=== PATIENT | female | born 2000 | race Caucasian/White ===

== ENCOUNTER 2022-08-13 13:32 | Emergency (ER) | payer BC ==
[~2022-08-13] VITALS: Ht 165.1 cm; Wt 52.2 kg
[2022-08-13 14:06] LABS: BASOPHILS # (AUTO) 0.1 10^3/uL (0.0-0.1); BASOPHILS % (AUTO) 1 % (0-10); EOSINOPHILS % (AUTO) 0 % (0-10); HEMATOCRIT 45 % (35-52); HEMOGLOBIN 15.2 g/dL (11.5-16.0); LYMPHOCYTES # (AUTO) 1.2 10^3/uL (1.0-4.0); LYMPHOCYTES % (AUTO) 13 % (12-44); MEAN CORPUSCULAR HEMOGLOBIN 31 pg (25-34); MEAN CORPUSCULAR HGB CONC 34 g/dL (32-36); MEAN CORPUSCULAR VOLUME 91 fL (80-99); MEAN PLATELET VOLUME 9.4 fL (9.0-12.2); MONOCYTES # (AUTO) 0.6 10^3/uL (0.0-1.0); MONOCYTES % (AUTO) 6 % (0-12); NEUTROPHILS # (AUTO) 7.5 10^3/uL (1.8-7.8); NEUTROPHILS % (AUTO) 80 % (42-75); PLATELET COUNT 373 10^3/uL (130-400); WHITE BLOOD COUNT 9.4 10^3/uL (4.3-11.0)
--- NOTE | 2022-08-13 14:13 | ED Cardiac General ---
History of Present Illness General Chief Complaint: Cardiac/General Problems Stated Complaint: ELEVATED HEART RATE Source: patient Exam Limitations: no limitations (DEAN GARAY APRN) History of Present Illness Date Seen by Provider: Aug 13, 2022 Time Seen by Provider: 13:48 Initial Comments 21-year-old female presents to the ED with complaints of elevated heart rate. States that randomly her heart rate will jump up to the 170s, stay there for a couple minutes and slowly go down. States this occurs daily. She reports dizziness, nausea, shortness of air and states she sometimes passes out, states that when she does not pass out she still sees black dots in her vision during the episodes. She reports that it occurred today around [address] States she still feels nauseous and a little dizzy. States she had the same problem 3.5 years ago, she was seen at [facility] who did a bunch of tests and did not find anything. States she has an appointment with the cardiology clinic next week. She denies any recent illness, denies fevers, denies chest pain, abdominal pain, diarrhea, constipation, dysuria, vomiting. Denies any other past medical/surgical history, only takes a multivitamin. (DEAN GARAY APRN) Allergies and Home Medications Patient Home Medication List Home Medication List Reviewed: Yes (DEAN GARAY APRN) Review of Systems Review of Systems Constitutional: see HPI (DEAN GARAY APRN) Past Fxicnwi-Eoqbge-Omokxs Hx Patient Social History Tobacco Use?: No Smoking Status: Never a Smoker Smokeless Tobacco Frequency: Never a User Use of E-Cig and/or Vaping dev: No Use of E-Cig and/or Vaping William: Never a User Substance use?: No Alcohol Use?: Yes Alcohol Frequency: Once in a while Pt feels they are or have been: No (DEAN GARAY APRN) Immunizations Up To Date COVID19 Vaccine Deputy K 9: J&J (DEAN GARAY APRN) Physical Exam Vital Signs Vital Signs - First Documented 08/13/22 08/13/22 13:46 15:24 Temp 36.2 Pulse 85 Resp 17 B/P (MAP) 119/80 (93) Pulse Ox 100 O2 Delivery Room Air (CAITLIN NICK MD) Vital Signs Capillary Refill : (DEAN GARAY APRN) Height, Weight, BMI Height: '" Weight: lbs. oz. kg; BMI Method: General Appearance: No Apparent Distress, WD/WN Neck: Normal Inspection, Supple Respiratory: Lungs Clear, Normal Breath Sounds, No Accessory Muscle Use, No Respiratory Distress Cardiovascular: Regular Rate, Rhythm, No Edema, No Gallop, No JVD, No Murmur Neurologic/Psychiatric: Alert, Oriented x3, Normal Mood/Affect Skin: Normal Color, Warm/Dry (DEAN GARAY APRN) Progress/Results/Core Measures Results/Orders Lab Results Laboratory Tests Test 08/13/22 14:00 Range/Units White Blood Count 9.4 4.3-11.0 10^3/uL Red Blood Count 4.90 3.80-5.11 10^6/uL Hemoglobin 15.2 11.5-16.0 g/dL Hematocrit 45 35-52 % Mean Corpuscular Volume 91 80-99 fL Mean Corpuscular Hemoglobin 31 25-34 pg Mean Corpuscular Hemoglobin Concent 34 32-36 g/dL Red Cell Distribution Width 11.5 10.0-14.5 % Platelet Count 373 130-400 10^3/uL Mean Platelet Volume 9.4 9.0-12.2 fL Immature Granulocyte % (Auto) 0 % Neutrophils (%) (Auto) 80 H 42-75 % Lymphocytes (%) (Auto) 13 12-44 % Monocytes (%) (Auto) 6 0-12 % Eosinophils (%) (Auto) 0 0-10 % Basophils (%) (Auto) 1 0-10 % Neutrophils # (Auto) 7.5 1.8-7.8 10^3/uL Lymphocytes # (Auto) 1.2 1.0-4.0 10^3/uL Monocytes # (Auto) 0.6 0.0-1.0 10^3/uL Eosinophils # (Auto) 0.0 0.0-0.3 10^3/uL Basophils # (Auto) 0.1 0.0-0.1 10^3/uL Immature Granulocyte # (Auto) 0.0 0.0-0.1 10^3/uL Sodium Level 138 135-145 MMOL/L Potassium Level 3.6 3.6-5.0 MMOL/L Chloride Level 104 98-107 MMOL/L Carbon Dioxide Level 26 21-32 MMOL/L Anion Gap 8 5-14 MMOL/L Blood Urea Nitrogen 7 7-18 MG/DL Creatinine 0.80 0.60-1.30 MG/DL Estimat Glomerular Filtration Rate 109 BUN/Creatinine Ratio 9 Glucose Level 75 70-105 MG/DL Calcium Level 9.2 8.5-10.1 MG/DL Corrected Calcium 8.8 8.5-10.1 MG/DL Magnesium Level 2.3 1.6-2.4 MG/DL Total Bilirubin 0.7 0.1-1.0 MG/DL Aspartate Amino Transf (AST/SGOT) 21 5-34 U/L Alanine Aminotransferase (ALT/SGPT) 25 0-55 U/L Alkaline Phosphatase 67 40-136 U/L Total Protein 7.6 6.4-8.2 GM/DL Albumin 4.5 3.2-4.5 GM/DL Thyroid Stimulating Hormone (TSH) 0.88 0.35-4.94 UIU/ML (CAITLIN NICK MD) Vital Signs/I&O 08/13/22 08/13/22 13:46 15:24 Temp 36.2 37.0 Pulse 85 79 Resp 17 18 B/P (MAP) 119/80 (93) 127/65 Pulse Ox 100 O2 Delivery Room Air Room Air (CAITLIN NICK MD) Progress Progress Note #1: Time: 14:08 Progress Note Patient seen and evaluated, resting comfortably in bed, no acute distress. Based on exam and symptoms, differential diagnosis includes but is not limited to sinus tachycardia, tachyarrhythmia. Work-up initiated including EKG, CBC, CMP, magnesium, TSH. Progress Note #2: Time: 15:11 Progress Note Labs reviewed. CBC grossly normal, CMP grossly normal, TSH normal. Labs discussed with patient. Patient provided discharge instructions and return precautions. (DEAN GARAY APRN) Initial ECG Impression Date: Aug 13, 2022 Initial ECG Impression Time: 14:06 Initial ECG Rate: 74 Initial ECG Rhythm: Normal Sinus Initial ECG Intervals: Normal Initial ECG Impression: Normal Initial ECG Comparisson: No Previous ECG Available (DEAN GARAY APRN) Departure Impression Primary Impression: Palpitations Disposition: 01 HOME, SELF-CARE Condition: Stable Departure-Patient Inst. Decision time for Depature: 15:12 (DEAN GARAY APRN) Referrals: NO,LOCAL PHYSICIAN (PCP/Family) Primary Care Physician Patient Instructions: Palpitations Add. Discharge Instructions: Please follow-up with cardiology next week as scheduled. Return for loss of consciousness, chest pain, sustained palpitations, shortness of breath, changes in vision, numbness or weakness. All discharge instructions reviewed with patient and/or family. Voiced understanding. ATTENDING PHYSICIAN NOTE: I was physically present as attending physician in the emergency department during the care of this patient, but I was not directly involved in the decision making or delivery of care for this patient. (CAITLIN NICK MD) DEAN GARAY APRN Aug 13, 2022 14:13 CAITLIN NICK MD Aug 16, 2022 07:49
[2022-08-13 14:25] LABS: ALBUMIN 4.5 GM/DL (3.2-4.5); POTASSIUM 3.6 MMOL/L (3.6-5.0)
[2022-08-13 14:26] LABS: CALCIUM 9.2 MG/DL (8.5-10.1)
[2022-08-13 14:28] LABS: TOTAL PROTEIN 7.6 GM/DL (6.4-8.2)
[2022-08-13 14:29] LABS: BILIRUBIN,TOTAL 0.7 MG/DL (0.1-1.0)
[2022-08-13 14:31] LABS: CREATININE SERUM 0.8 MG/DL (0.60-1.30)
[2022-08-13 14:34] LABS: MAGNESIUM 2.3 MG/DL (1.6-2.4)
[2022-08-13 15:24] VITALS: BP 127/65
== END 2022-08-13 15:24 | disposition home or self-care (01) ==
LOC: EDUNIT# 13:32 → ER 13:34
DX: R00.2 Palpitations (principal); Z28.311 Partially vaccinated for COVID-19
CPT/HCPCS: 36415; 80053; 83735; 84443; 85025; 93005

== ENCOUNTER → 2022-08-27 | Outpatient (CLI) | payer BC | LOC: CARD 11:29 | PROVIDERS: ATTEND Internal Medicine Cardiovascular Disease | DX: R55 Syncope and collapse (principal) | CPT/HCPCS: 93306 ==

== ENCOUNTER → 2022-09-14 | Outpatient (CLI) | payer BC ==
[2022-09-14 13:42] VITALS: BP 110/70
== END ==
LOC: CARD 13:16
PROVIDERS: ATTEND Internal Medicine Cardiovascular Disease
DX: R55 Syncope and collapse (principal)

== ENCOUNTER → 2022-11-02 | Outpatient (CLI) | payer BC ==
[2022-11-02] VITALS (30 sets, daily range): BP systolic 90–122; BP diastolic 53–100
[~2022-11-02] VITALS: Ht 165.1 cm; Wt 55.3 kg
[~2022-11-02] MED LIST: ATROPINE INJECTION 1 MG/10 ML SYR (ABBOTT) ONE; NS IV 1000 ML 1,000 ML IV SCH; NS IV 1000 ML 1,000 ML ONE
== END ==
LOC: CARD 07:04
PROVIDERS: ATTEND Internal Medicine Cardiovascular Disease
DX: R55 Syncope and collapse (principal); R00.2 Palpitations; R07.9 Chest pain, unspecified
CPT/HCPCS: 93660